=== PATIENT | male | born 1970 | race Caucasian/White ===

== ENCOUNTER 2018-07-16 03:50 | Emergency (ER) | payer BC, OTHER ==
[~2018-07-16] VITALS: Ht 185.4 cm; Wt 81.6 kg
--- OUTSIDE RECORDS SUMMARY | 2018-07-16 03:56 | XMS REPORT ---
Author ANDREZ Bailey [facility], [place] eClinicalWorks Address Unknown Phone Unavailable Care Team Providers Care Industrial Safety And Health Manager Name Role Phone ANDREZ DOLAN CP Unavailable Allergies, Adverse Reactions, Alerts Substance Reaction Event Type N.K.D.A. Info Not Available Non Drug Allergy Problems Problem Type Condition Code Onset Dates Condition Status Assessment Unprotected sex Z72.51 Active Assessment Screen for STD (sexually transmitted disease) Z11.3 Active Medications Medication Code System Code Instructions Start Date End Date Status Dosage Aspir-81 [facility] [address]-37 81 MG Orally Once a day 1 tablet Gabapentin [facility] [address]-74 800 MG Orally Three times a day 1 tablet Zithromax Z-Peng [facility] [address]-22 250 MG Orally Once a day Nov 29, 2015 Dec 04, 2015 2 tablets on the first day, then 1 tablet daily for 4 days Baclofen [facility] [address]-31 10 MG Orally HS 1 tablet with food or milk Procedures Procedure Coding System Code Date Office Visit, Est Pt., Level 3 CPT-4 72908 Nov 29, 2015 TRICHOMONAS ASSAY W/OPTIC CPT-4 98291 Nov 29, 2015 Vital Signs Date/Time: Nov 29, 2015 Cardiac Monitoring Heart Rate 92 bpm Weight 185.2 lbs Height 73 in BMI 24.43 Index Blood Pressure Diastolic 84 mmHg Blood Pressure Systolic 138 mmHg Results No Known Results Summary Purpose eClinicalWorks Submission
[2018-07-16] MEDS ORDERED: GABAPENTIN 800 MG TABLET (04:15)
--- NOTE | 2018-07-16 04:25 | ED Abdominal Pain ---
General Chief Complaint: Abdominal/GI Problems Stated Complaint: PAIN IN UPPER BACK SOB Source of Information: Patient History of Present Illness Date Seen by Provider: Jul 16, 2018 Time Seen by Provider: 04:24 Initial Comments 48-year-old male presenting with complaints of right upper quadrant abdominal pain radiating to his right shoulder. This started around midnight and has progressed throughout the morning. He denies having any nausea or vomiting. He has tried ibuprofen as well as Zantac at home without any relief. He cannot get comfortable at home so he came into the emergency department. He also has some shortness of breath because he has pain on the right side when he tries to take a deep breath. He denies any fever or chills. He has been having some increased heartburn symptoms in the last month or so. He did have an episode of similar pain earlier this week but it was not as severe. he has had no surgeries on his abdomen. Allergies and Home Medications Allergies Coded Allergies: No Known Drug Allergies (Unverified , 07/16/18) Home Medications Naproxen 500 Mg Tablet.dr, 500 MG PO BID PRN for ABDOMINAL PAIN Prescribed by: JOSE RAFAEL DYE on 07/16/18611 Tramadol HCl 50 Mg Tablet, 50 MG PO Q6H PRN for PAIN-SEVERE TO BREAKTHROUGH Prescribed by: JOSE RAFAEL DYE on 07/16/18611 Patient Home Medication List Home Medication List Reviewed: Yes Review of Systems Review of Systems Constitutional: No chills, No fever EENTM: No Symptoms Reported Respiratory: See HPI Cardiovascular: No Symptoms Reported Gastrointestinal: See HPI; Denies Constipated, Denies Diarrhea, Denies Nausea Genitourinary: Denies Burning, Denies Flank Pain, Denies Pain, Denies Urgency Musculoskeletal: see HPI Skin: no symptoms reported Psychiatric/Neurological: No Symptoms Reported Past Gmrakjp-Isntjr-Hvqejg Hx Past Med/Social Hx: Reviewed Nursing Past Med/Soc Hx Patient Social History Alcohol Use: Rarely Uses Alcohol Beverage of Choice: Beer Recreational Drug Use: No Smoking Status: Current Everyday Smoker Type Used: Cigarettes Recent Foreign Travel: No Contact w/Someone Who Travel: No Physical Abuse: No Sexual Abuse: No Mistreated: No Fear: No Past Medical History Surgeries: No Physical Exam Vital Signs Vital Signs - First Documented 07/16/18 04:21 Temp 97.1 Pulse 71 Resp 15 B/P (MAP) 149/88 (108) O2 Delivery Room Air Capillary Refill : Height/Weight/BMI Height: '" Weight: lbs. oz. kg; BMI Method: General Appearance: WD/WN, mild distress HEENT: PERRL/EOMI, pharynx normal Neck: supple, normal inspection Respiratory: chest non-tender, lungs clear, normal breath sounds, no respiratory distress, no accessory muscle use Cardiovascular: normal peripheral pulses, regular rate, rhythm Gastrointestinal: normal bowel sounds, soft, no pulsatile mass; No guarding, No rebound; tenderness (right upper quadrant tenderness to palpation. Positive Eason's sign) Extremities: normal range of motion, non-tender, normal inspection, normal capillary refill Neurologic/Psychiatric: alert, oriented x 3 Skin: normal color, warm/dry Progress/Results/Core Measures Results/Orders Lab Results Laboratory Tests Test 07/16/18 04:10 Range/Units White Blood Count 9.4 4.3-11.0 10^3/uL Red Blood Count 5.18 4.35-5.85 10^6/uL Hemoglobin 16.6 13.3-17.7 G/DL Hematocrit 48 40-54 % Mean Corpuscular Volume 92 80-99 FL Mean Corpuscular Hemoglobin 32 25-34 PG Mean Corpuscular Hemoglobin Concent 35 32-36 G/DL Red Cell Distribution Width 12.9 10.0-14.5 % Platelet Count 229 130-400 10^3/uL Mean Platelet Volume 10.3 7.4-10.4 FL Neutrophils (%) (Auto) 42 42-75 % Lymphocytes (%) (Auto) 47 H 12-44 % Monocytes (%) (Auto) 8 0-12 % Eosinophils (%) (Auto) 2 0-10 % Basophils (%) (Auto) 1 0-10 % Neutrophils # (Auto) 4.0 1.8-7.8 X 10^3 Lymphocytes # (Auto) 4.4 H 1.0-4.0 X 10^3 Monocytes # (Auto) 0.8 0.0-1.0 X 10^3 Eosinophils # (Auto) 0.2 0.0-0.3 10^3/uL Basophils # (Auto) 0.1 0.0-0.1 10^3/uL Neutrophils % (Manual) 41 % Lymphocytes % (Manual) 45 % Monocytes % (Manual) 6 % Eosinophils % (Manual) 2 % Band Neutrophils 2 % Atypical Lymphocytes 4 % Sodium Level 142 135-145 MMOL/L Potassium Level 3.6 3.6-5.0 MMOL/L Chloride Level 101 98-107 MMOL/L Carbon Dioxide Level 24 21-32 MMOL/L Anion Gap 17 H 5-14 MMOL/L Blood Urea Nitrogen 15 7-18 MG/DL Creatinine 1.30 0.60-1.30 MG/DL Estimat Glomerular Filtration Rate 58 BUN/Creatinine Ratio 12 Glucose Level 102 70-105 MG/DL Calcium Level 9.7 8.5-10.1 MG/DL Corrected Calcium 8.5-10.1 MG/DL Total Bilirubin 0.9 0.1-1.0 MG/DL Aspartate Amino Transf (AST/SGOT) 14 5-34 U/L Alanine Aminotransferase (ALT/SGPT) 12 0-55 U/L Alkaline Phosphatase 61 40-136 U/L Troponin T 7 <=15 NG/L Pro-B-Type Natriuretic Peptide 56.9 <75.0 PG/ML Total Protein 7.2 6.4-8.2 GM/DL Albumin 4.7 H 3.2-4.5 GM/DL Lipase 89 H 8-78 U/L My Orders Orders - JOSE RAFAEL DYE MD Cbc And Manual Diff (07/16/18 04:16) Comprehensive Metabolic Panel (07/16/18 04:16) Lipase (07/16/18 04:16) Troponin T (07/16/18 04:16) Probnp Fs (07/16/18 04:16) Iv Heplock-Insert (Order) (07/16/18 04:16) Ekg Tracing (07/16/18 04:16) Ketorolac Injection (Toradol Injection) (07/16/18 04:30) Ondansetron Injection (Zofran Injectio (07/16/18 04:30) Ct Abdomen/Pelvis W (07/16/18 04:41) Iohexol Injection (Omnipaque 350 Mg/Ml 1 (07/16/18 04:45) Received Contrast (Hold Metformin- Contr (07/16/18 04:45) Ns (Ivpb) (Sodium Chloride 0.9% Ivpb Bag (07/16/18 04:45) Sodium Chloride Flush (Catheter Flush Sy (07/16/18 04:45) Medications Given in ED Current Medications Medications Dose Ordered Sig/Radhames Route Start Time Stop Time Status Last Admin Dose Admin Iohexol 100 ml ONCE ONCE IV 07/16/18 04:45 07/16/18 05:02 DC 07/16/18 05:22 100 ML Ketorolac Tromethamine 30 mg ONCE ONCE IVP 07/16/18 04:30 07/16/18 04:31 DC 07/16/18 04:32 30 MG Ondansetron HCl 4 mg ONCE ONCE IVP 07/16/18 04:30 07/16/18 04:31 DC 07/16/18 04:32 4 MG Sodium Chloride 10 ml NEEDED PRN IV 07/16/18 04:45 07/16/18 06:21 DC 07/16/18 05:22 10 ML Sodium Chloride 50 ml ONCE ONCE IV 07/16/18 04:45 07/16/18 05:02 DC 07/16/18 05:22 50 ML Vital Signs/I&O 07/16/18 04:21 Temp 97.1 Pulse 71 Resp 15 B/P (MAP) 149/88 (108) O2 Delivery Room Air Progress Progress Note #1: Time: 04:20 Progress Note Check labs and CT scan of the abdomen and pelvis. Will give Toradol for pain. If he is not having improved pain will try fentanyl. His pain and exam seem consistent with possible gallbladder disease. Progress Note #2: Time: 05:55 Progress Note Pain improved to 2 or 3 out of 10. Labs stable without signs of acute significant abnormality. CT scan shows low attenuation stones with mildly distended gallbladder. counseled pt to get outpt ultrasound. follow up for continued problems/ concerns. Counseled on follow up and return precautions. Initial ECG Impression Date: Jul 16, 2018 Initial ECG Impression Time: 04:14 Initial ECG Rate: 62 Initial ECG Rhythm: Normal Sinus Initial ECG Intervals: Normal Initial ECG Impression: Normal Initial ECG Comparisson: No Previous ECG Available Comment Normal sinus rhythm with a heart rate is 62 bpm. CO interval 134 ms. QT interval of 406 ms and a QT corrected interval of 412 ms. He has no acute ST elevation. He has no prior tracings for comparison. Diagnostic Imaging Diagonstic Imaging: CT Plain Films/CT/US/NM/MRI: abdomen, pelvis Comments Hepatic steatosis. Bilateral nonobstructing intrarenal calculi. Gallbladder is mildly distended with low attenuation stones. Negative for biliary ductal dilitation. Reviewed: Reviewed [place] Study, Reviewed by Me Departure Impression Primary Impression: Cholelithiasis Qualified Codes: K80.20 - Calculus of gallbladder without cholecystitis without obstruction Additional Impression: RUQ abdominal pain Disposition: HOME, SELF-CARE Condition: Stable Departure-Patient Inst. Decision time for Depature: 06:07 Referrals: NO,LOCAL PHYSICIAN (PCP) Primary Care Physician Patient Instructions: Gallstones (DC), Low Cholesterol, Saturated Fat, and Trans Fat Diet Add. Discharge Instructions: Follow a low fat bland diet. Check back with clinic and have a gallbladder ultrasound to further evaluate your pain and stones they saw on the CT scan. You may also need to see a surgeon for possible removal of your gallbladder. Return to the ER for worsening pain or fever over 101 F or uncontrolled nausea/ vomiting. All discharge instructions reviewed with patient and/or family. Voiced understanding. Scripts Tramadol HCl (Tramadol HCl) 50 Mg Tablet 50 MG PO Q6H PRN for PAIN-SEVERE TO BREAKTHROUGH for 5 Days, #20 TAB 0 Refills Prov: JOSE RAFAEL DYE MD 07/16/18 Naproxen (EC-Naproxen) 500 Mg Tablet.dr 500 MG PO BID PRN for ABDOMINAL PAIN for 14 Days, #28 TAB 0 Refills Prov: JOSE RAFAEL DYE MD 07/16/18 Work/School Note: Work Release Form Date Seen in the Emergency Department: Jul 16, 2018 Return to Work: Jul 17, 2018 Restrictions: No Restrictions JOSE RAFAEL DYE MD Jul 16, 2018 04:24
[2018-07-16] MEDS ORDERED: KETOROLAC 30 MG/ML VIAL IVP ONE (04:30)
[2018-07-16] MEDS ORDERED: ONDANSETRON 4 MG/2 ML (SDV) Z0FRAN IVP ONE (04:30)
[2018-07-16] MEDS ORDERED: CATHETER FLUSH 10 ML SYR IV PRN (04:45)
[2018-07-16] MEDS ORDERED: HOLD METFORMIN - RECEIVED CONTRAST 20 ML VIAL IV SCH (04:45)
[2018-07-16] MEDS ORDERED: IOHEXOL 350 MG/ML 100 ML (OMNIPAQUE 350) VIAL IV ONE (04:45)
[2018-07-16] MEDS ORDERED: NS 50 ML (IVPB) BAG IV ONE (04:45)
[2018-07-16 04:47] LABS: EOSINOPHILS % (AUTO) 2 % (0-10); HEMATOCRIT 48 % (40-54); HEMOGLOBIN 16.6 G/DL (13.3-17.7); LYMPHOCYTES % (AUTO) 47 % (12-44); MEAN CORPUSCULAR HEMOGLOBIN 32 PG (25-34); MEAN CORPUSCULAR HGB CONC 35 G/DL (32-36); MEAN CORPUSCULAR VOLUME 92 FL (80-99); MEAN PLATELET VOLUME 10.3 FL (7.4-10.4); MONOCYTES % (AUTO) 8 % (0-12); NEUTROPHILS % (AUTO) 42 % (42-75); PLATELET COUNT 229 10^3/uL (130-400); RED CELL DISTRIBUTION WIDTH 12.9 % (10.0-14.5); WHITE BLOOD COUNT 9.4 10^3/uL (4.3-11.0)
[2018-07-16 04:48] LABS: ATYPICAL LYMPHOCYTES 4 %; BAND NEUTROPHILS 2 %; BASOPHILS # (AUTO) 0.1 10^3/uL (0.0-0.1); BASOPHILS % (AUTO) 1 % (0-10); EOSINOPHILS # (AUTO) 0.2 10^3/uL (0.0-0.3); EOSINOPHILS % (MANUAL) 2 %; LYMPHOCYTES # (AUTO) 4.4 X 10^3 (1.0-4.0); LYMPHOCYTES % (MANUAL) 45 %; MONOCYTES # (AUTO) 0.8 X 10^3 (0.0-1.0); MONOCYTES % (MANUAL) 6 %; NEUTROPHILS % (MANUAL) 41 %
[2018-07-16 05:17] LABS: ALANINE AMINOTRANSFERASE 12 U/L (0-55); ALKALINE PHOSPHATASE 61 U/L (40-136); BILIRUBIN,TOTAL 0.9 MG/DL (0.1-1.0); BUN/CREATININE RATIO 12; CALCIUM 9.7 MG/DL (8.5-10.1); CHLORIDE 101 MMOL/L (98-107); GFR ESTIMATED 58; GLUCOSE 102 MG/DL (70-105); POTASSIUM 3.6 MMOL/L (3.6-5.0); SODIUM 142 MMOL/L (135-145)
[2018-07-16 05:18] LABS: ALBUMIN 4.7 GM/DL (3.2-4.5); LIPASE 89 U/L (8-78); TOTAL PROTEIN 7.2 GM/DL (6.4-8.2)
[2018-07-16 06:04] LABS: CARBON DIOXIDE 24 MMOL/L (21-32)
[2018-07-16] MEDS ORDERED: NAPR-1211 PO (06:12)
[2018-07-16] MEDS ORDERED: TRAM50TA2 PO (06:12)
--- NOTE | 2018-07-16 06:18 | Diagnostic Imaging Report ---
PROCEDURE: CT abdomen and pelvis with contrast. TECHNIQUE: Multiple contiguous axial images were obtained through the abdomen and pelvis after administration of intravenous contrast. Auto Exposure Controls were utilized during the CT exam to meet ALARA standards for radiation dose reduction. INDICATION: Right upper quadrant abdominal pain Lung bases are clear. Liver appears normal. The gallbladder is present. There are stones in the gallbladder. Pancreas appears normal. Spleen is not enlarged. There are small calculi present in both kidneys. There is no hydronephrosis. Ureters are clear. Urinary bladder is normal. Prostate is not enlarged. Small bowel is not dilated. There is no evidence for appendicitis. Colon appears normal. There is no intraperitoneal free air or free fluid. Impression: Cholecystolithiasis. Bilateral nephrolithiasis. Dictated by: Dictated on workstation # [id number]
[2018-07-16 06:30] VITALS: BP 121/69
== END 2018-07-16 06:21 | disposition home or self-care (01) ==
LOC: ER FS 03:53
DX: K80.20 Calculus of gallbladder without cholecystitis without obstruction (principal); F17.210 Nicotine dependence, cigarettes, uncomplicated
CPT/HCPCS: 36415; 74177; 80053; 83690; 83880; 84484; 85007; 85027

== ENCOUNTER 2018-08-01 01:53 | Emergency (ER) | payer BC ==
[~2018-08-01] VITALS: Ht 185.4 cm; Wt 81.6 kg
[~2018-08-01 01:53] MED LIST: GABAPENTIN 800 MG TABLET; NAPR-1211 PO; TRAM50TA2 PO
--- NOTE | 2018-08-01 02:11 | ED Abdominal Pain ---
General Stated Complaint: GALLBLADDER PAIN Source of Information: Patient History of Present Illness Date Seen by Provider: August 01, 2018 Time Seen by Provider: 02:06 Initial Comments 48-year-old male presents with right upper quadrant pain. Patient has known gallstones. He is scheduled for an outpatient surgery 3 days from now. Presents because he gets flares of his pain and that this was a little bit worse. He has no nausea, vomiting, fevers, chills. This is similar this pain flares that he has been having. He has no other systemic complaints at this time. Allergies and Home Medications Allergies Coded Allergies: No Known Drug Allergies (Unverified , 07/16/18) Home Medications Dicyclomine HCl 10 Mg Capsule, 10 MG PO Q8H Prescribed by: ROSARIO OCAMPO on 08/01/18219 Hydrocodone Bit/Acetaminophen 1 Tab Tab, 1 EACH PO Q8H PRN for PAIN-MODERATE Prescribed by: ROSARIO OCAMPO on 08/01/18219 Naproxen 500 Mg Tablet.dr, 500 MG PO BID PRN for ABDOMINAL PAIN Prescribed by: JOSE RAFAEL DYE on 07/16/18611 Tramadol HCl 50 Mg Tablet, 50 MG PO Q6H PRN for PAIN-SEVERE TO BREAKTHROUGH Prescribed by: JOSE RAFAEL DYE on 07/16/18611 Patient Home Medication List Home Medication List Reviewed: Yes Review of Systems Review of Systems Constitutional: No chills, No fever Gastrointestinal: Abdominal Pain; Denies Nausea, Denies Vomiting Musculoskeletal: no symptoms reported Skin: no symptoms reported Psychiatric/Neurological: No Symptoms Reported Past Rtcaohs-Zfzepy-Ahytey Hx Patient Social History Alcohol Beverage of Choice: Beer Type Used: Cigarettes Recent Foreign Travel: No Contact w/Someone Who Travel: No Past Medical History Surgeries: No Physical Exam Vital Signs Capillary Refill : Height/Weight/BMI Height: 6'1.00" Weight: 180lbs. oz. 81.907584bi; BMI Method:Stated General Appearance: thin, other (uncomfortable ) HEENT: PERRL/EOMI Neck: supple Respiratory: lungs clear, normal breath sounds Cardiovascular: normal peripheral pulses, regular rate, rhythm Gastrointestinal: soft; No distended; tenderness (RUQ) Back: normal inspection, no CVA tenderness, no vertebral tenderness Neurologic/Psychiatric: alert, oriented x 3 Skin: normal color Progress/Results/Core Measures Results/Orders My Orders Orders - ROSARIO OCAMPO DO Dicyclomine Injection (Bentyl Injection) (08/01/18 02:14) Hydrocodone/Apap 5/325 Tablet (Lortab 5 (08/01/18 02:15) Ketorolac Injection (Toradol Injection) (08/01/18 02:14) Medications Given in ED Current Medications Medications Dose Ordered Sig/Radhames Route Start Time Stop Time Status Last Admin Dose Admin Acetaminophen/ Hydrocodone Bitart 1 tab ONCE ONCE PO 08/01/18 02:15 08/01/18 02:16 DC 08/01/18 02:26 1 TAB Departure Impression Primary Impression: Cholelithiasis Qualified Codes: K80.20 - Calculus of gallbladder without cholecystitis without obstruction Disposition: HOME, SELF-CARE Condition: Stable Departure-Patient Inst. Referrals: NO,LOCAL PHYSICIAN (PCP) Primary Care Physician Patient Instructions: Gallstones (DC) Scripts Dicyclomine HCl (Dicyclomine HCl) 10 Mg Capsule 10 MG PO Q8H, #10 CAP Prov: ROSARIO OCAMPO DO 08/01/18 Hydrocodone Bit/Acetaminophen (Hydrocodone/Acetaminophen 5/325mg Tablet) 1 Tab Tab 1 EACH PO Q8H PRN for PAIN-MODERATE MDD 10 for 3 Days, #5 TAB Prov: ROSARIO OCAMPO DO 08/01/18 ROSARIO OCAMPO DO August 01, 2018 02:11
[2018-08-01] MEDS ORDERED: KETOROLAC 60 MG/2 ML VIAL IM STA (02:14)
[2018-08-01] MEDS ORDERED: DICYCLOMINE 10 MG/ML (BENTYL) 2 ML AMP IM STA (02:14)
[2018-08-01] MEDS ORDERED: HYDROcodone/APAP 5 MG/325 MG (LORTAB) TAB PO ONE (02:15)
[2018-08-01] MEDS ORDERED: DICY10CA12 PO (02:20)
[2018-08-01] MEDS ORDERED: ACHD5005 PO (02:20)
[2018-08-01 02:42] VITALS: BP 157/90
== END 2018-08-01 02:42 | disposition home or self-care (01) ==
LOC: EDUNIT# 01:53 → ER FS 01:54
DX: K80.20 Calculus of gallbladder without cholecystitis without obstruction (principal)
CPT/HCPCS: 99284

== ENCOUNTER → 2018-08-03 | Outpatient (CLI) | payer BC ==
[~2018-08-03] MED LIST changes: +ACHD5005 PO; +DICY10CA12 PO
== END ==
LOC: CARD 13:26
PROVIDERS: ATTEND Surgery
DX: Z01.810 Encounter for preprocedural cardiovascular examination (principal)
CPT/HCPCS: 93005